=== PATIENT | male | born 1940 | race Caucasian/White ===

== ENCOUNTER 2017-05-11 11:28 | Day surgery (SDC) | payer MEDICARE ==
[~2017-05-11 11:28] MED LIST: Buffered Lidocaine 0.9% SYRIN* 5 ML/SYR SYRINGE INTRADERM ONE; Buffered Lidocaine 0.9% SYRIN* 5 ML/SYR SYRINGE ONE
[2017-05-11] MEDS ORDERED: fentaNYL* 50 MCG/ML 2 ML VIAL (100 MCG VIAL) ONE ×2 (12:48→14:40)
[2017-05-11] MEDS ORDERED: Midazolam* 1 MG/ML 2 ML VIAL (2 MG) ONE ×2 (12:48→14:50)
[2017-05-11] MEDS ORDERED: Propofol* 10 MG/ML 20 ML BTL IV PUSH ONE ×2 (12:48→13:45)
[2017-05-11] MEDS ORDERED: Bupivacaine 0.5% W/EPI SDV* 10 ML VIAL INJ ONE (13:05)
[2017-05-11] MEDS ORDERED: Phenylephrine IV* 40 MCG/ML 10 ML SYRINGE ONE (13:27)
[2017-05-11] MEDS ORDERED: Mineral Oil Sterile, TOPICAL* 25 ML BTL ONE ×2 (13:56→15:31)
[2017-05-11 16:46] VITALS: BP 120/68
== END 2017-05-11 16:55 | disposition home or self-care (01) ==
LOC: OR 11:28
PROVIDERS: ATTEND Plastic Surgery
DX: C43.61 Malignant melanoma of right upper limb, including shoulder (principal); C44.519 Basal cell carcinoma of skin of other part of trunk; I10 Essential (primary) hypertension; J44.9 Chronic obstructive pulmonary disease, unspecified; Z87.891 Personal history of nicotine dependence; Z68.37 Body mass index [BMI] 37.0-37.9, adult
CPT/HCPCS: 88305; A9270-GY; J2250; J2704; J3010